=== PATIENT | female | born 1950 | race Caucasian/White ===

== ENCOUNTER 2019-01-14 16:55 | Observation (INO) ==
[2019-01-14] MEDS ORDERED: methylPREDNISolone SOD SUC 125 MG/2 ML VIAL IV STA (18:36)
[2019-01-14] MEDS ORDERED: ALBUTEROL/IPRATROPIUM 3 ML NEB RESP TX STA (18:36)
[2019-01-14] MEDS ORDERED: ALBUTEROL 2.5 MG/3 ML NEB RESP TX STA (18:37)
[2019-01-14 18:53] LABS: Basophils # 0.1 10*3/uL (0.0-0.2); Basophils % 0.4 % (0.0-0.8); Eosinophils # 0.1 10*3/uL (0.0-0.87); Hemoglobin 14.5 GM/DL (12.0-16.0); Immature Granulocytes % 0.3 %; Immature Granulocytes Absolute 0.04 #; Lymphocytes # 2.9 10*3/uL (1.4-4.0); Lymphocytes % 20.9 % (21.3-54.2); Mean Corpuscular HGB Conc 33.7 GM/DL (32-36); Mean Corpuscular Volume 83.8 FL (87-102); Mean Platelet Volume 9.8 FL (9.6-12.0); Monocytes % 5.8 % (1.7-12.7); Neutrophils % 71.6 % (38.7-73.9); Platelet Count 299 T/CUMM (130-400); Red Blood Count 5.13 MC/CUMM (3.8-5.5); White Blood Count 13.6 T/CUMM (4-12)
[2019-01-14 19:06] LABS: Calcium 9.8 MG/DL (8.5-10.1); Osmolality,Calculated 275.7 MOS/KG (273-304)
[2019-01-14] MEDS ORDERED: cefTRIAXone 1,000 MG in SODIUM CHLORIDE 0.9% 100 ML IV STA (19:10)
[2019-01-14] MEDS ORDERED: AZITHROMYCIN INJ 500 MG in SODIUM CHLORIDE 0.9% 250 ML IV STA (19:10)
[2019-01-14 19:17] LABS: ABG HCO3 29.8 MMOL/L (20-26); ABG Oxygen Saturation 94.1 % (95-100); ABG PCO2 34.8 MM HG (35-48); ABG PH 7.524 (7.35-7.45); ABG PO2 65.2 MM HG (80-95); ABG TCO2 24.3 MMOL/L (23-27); Allen Test Positive; Pt O2 Delivery Device Room Air
[2019-01-14] MEDS ORDERED: ALBUTEROL 2.5 MG/3 ML NEB RESP TX PRN (19:40)
[2019-01-14] MEDS ORDERED: hydrALAZINE 20 MG/1 ML VIAL IV PRN (19:42)
[2019-01-14] MEDS ORDERED: DOCUSATE SODIUM 100 MG CAPSULE PO PRN (19:56)
[2019-01-14] MEDS ORDERED: ZALEPLON 5 MG CAPSULE PO PRN (19:56)
[2019-01-14] MEDS ORDERED: ACETAMINOPHEN 325 MG TABLET PO PRN (19:56)
[2019-01-14] MEDS ORDERED: guaiFENesin/DM ER 600-30 MG TABLET PO PRN (19:56)
[2019-01-14] MEDS ORDERED: ONDANSETRON 4 MG/2 ML VIAL IV PRN (19:56)
[2019-01-14] MEDS ORDERED: diphenhydrAMINE CAP 25 MG CAPSULE PO PRN (19:56)
[2019-01-14] MEDS: POTASSIUM CHLORIDE 20 MEQ TABLET PO SCH (20:52)
[2019-01-14] MEDS: SODIUM CHLORIDE 0.9% 1,000 ML IV SCH (20:53)
[2019-01-14] MEDS: ENOXAPARIN 40 MG/0.4 ML SYRINGE SUBCUT SCH (20:53)
[2019-01-14] MEDS: BUDESONIDE 0.5 MG/2 ML NEB RESP TX SCH (23:10)
[2019-01-14] MEDS: ALBUTEROL/IPRATROPIUM 3 ML NEB RESP TX SCH (23:10)
[2019-01-15] MEDS: ALBUTEROL/IPRATROPIUM 3 ML NEB RESP TX SCH ×5 (03:18→20:04)
[2019-01-15] MEDS: methylPREDNISolone SOD SUC 40 MG/1 ML VIAL IV SCH ×3 (03:32→18:29)
[2019-01-15 06:10] LABS: Immature Granulocytes % 0.4 %; Immature Granulocytes Absolute 0.04 #; Lymphocytes # 0.6 10*3/uL (1.4-4.0); Lymphocytes % 6.3 % (21.3-54.2); Mean Corpuscular HGB Conc 34.2 GM/DL (32-36); Mean Corpuscular Volume 84.6 FL (87-102); Mean Platelet Volume 10.3 FL (9.6-12.0); Monocytes % 0.4 % (1.7-12.7); Neutrophils % 92.9 % (38.7-73.9); Platelet Count 250 T/CUMM (130-400); Red Blood Count 4.49 MC/CUMM (3.8-5.5); White Blood Count 8.9 T/CUMM (4-12)
[2019-01-15 06:26] LABS: Albumin 2.8 G/DL (3.4-5.0); Bilirubin,Total 0.8 MG/DL (0.2-1.0); Calcium 9.4 MG/DL (8.5-10.1); Osmolality,Calculated 287.1 MOS/KG (273-304); Total Protein 6.5 G/DL (6.4-8.3)
[2019-01-15 06:42] LABS: Hypochromasia 1+; Lymphocytes 1 % (20-55); Microcytosis 1+; Platelet Estimate Normal; Segmented Neutrophils 99 % (50-85); Total Cells Counted 100
[2019-01-15] MEDS: BUDESONIDE 0.5 MG/2 ML NEB RESP TX SCH ×2 (07:02→20:04)
[2019-01-15] MEDS: POTASSIUM CHLORIDE 20 MEQ TABLET PO SCH ×2 (09:00→21:37)
[2019-01-15] MEDS: PANTOPRAZOLE 40 MG TABLET PO SCH (09:00)
[2019-01-15] MEDS: POTASSIUM CHLORIDE RIDER 10 MEQ in PREMIX 1 EACH IV SCH ×8 (10:09→22:58)
[2019-01-15] MEDS ORDERED: MAGNESIUM SULF RIDER 4 GM in PREMIX 1 EACH IV PRN (13:50)
[2019-01-15] MEDS ORDERED: MAGNESIUM SULF RIDER 2 GM in PREMIX 1 EACH IV PRN (13:50)
[2019-01-15] MEDS: SODIUM CHLORIDE 0.9% 1,000 ML IV SCH (14:05)
[2019-01-15] MEDS ORDERED: hydrOXYzine HCL 25 MG TABLET PO ONE (18:08)
[2019-01-15] MEDS: cefTRIAXone 1,000 MG in SYRINGE 1 EACH IV SCH (18:31)
[2019-01-15] MEDS: GABAPENTIN 100 MG CAPSULE PO SCH (21:37)
[2019-01-15] MEDS: ROSUVASTATIN 20 MG TABLET PO SCH (21:37)
[2019-01-15] MEDS: ENOXAPARIN 40 MG/0.4 ML SYRINGE SUBCUT SCH (21:38)
[2019-01-15] MEDS: AZITHROMYCIN INJ 500 MG in SODIUM CHLORIDE 0.9% 250 ML IV SCH (21:48)
[2019-01-16] MEDS: methylPREDNISolone SOD SUC 40 MG/1 ML VIAL IV SCH ×2 (03:55→21:27)
[2019-01-16] MEDS: ALBUTEROL/IPRATROPIUM 3 ML NEB RESP TX SCH ×6 (04:10→19:23)
[2019-01-16 05:48] LABS: Risk Ratio 2.18; VLDL CHOLESTEROL 19.6 MG/DL
[2019-01-16 05:55] LABS: Free T4 (Free Thyroxine) 1.47 NG/DL (0.76-1.46); Thyroid Stimulating Hormone 0.086 uIU/ml (0.358-3.74)
[2019-01-16] MEDS ORDERED: LEVOTHYROXINE 150 MCG TABLET PO SCH (07:00)
[2019-01-16] MEDS: BUDESONIDE 0.5 MG/2 ML NEB RESP TX SCH ×2 (07:47→19:23)
[2019-01-16 08:18] LABS: Calcium 9.1 MG/DL (8.5-10.1); Osmolality,Calculated 286.3 MOS/KG (273-304)
[2019-01-16] MEDS: PANTOPRAZOLE 40 MG TABLET PO SCH (09:51)
[2019-01-16] MEDS: POTASSIUM CHLORIDE 20 MEQ TABLET PO SCH ×2 (09:51→21:18)
[2019-01-16] MEDS: CITALOPRAM 40 MG TABLET PO SCH (09:51)
[2019-01-16] MEDS: GABAPENTIN 100 MG CAPSULE PO SCH ×2 (09:51→21:18)
[2019-01-16] MEDS: CLOPIDOGREL 75 MG TABLET PO SCH (09:51)
[2019-01-16] MEDS: guaiFENesin/DM ER 600-30 MG TABLET PO SCH ×2 (09:52→21:18)
[2019-01-16] MEDS: LINACLOTIDE 145 MCG CAPSULE PO SCH (09:52)
[2019-01-16] MEDS: Fluticasone Furoate-Vilanterol [Breo Ellipta] 1 inh INH SCH (09:54)
[2019-01-16] MEDS: ROSUVASTATIN 20 MG TABLET PO SCH (21:18)
[2019-01-16] MEDS: ENOXAPARIN 40 MG/0.4 ML SYRINGE SUBCUT SCH (21:18)
[2019-01-16] MEDS: AZITHROMYCIN INJ 500 MG in SODIUM CHLORIDE 0.9% 250 ML IV SCH (21:21)
[2019-01-16] MEDS: cefTRIAXone 1,000 MG in SYRINGE 1 EACH IV SCH (21:22)
[2019-01-17] MEDS: ALBUTEROL/IPRATROPIUM 3 ML NEB RESP TX SCH ×4 (00:24→11:04)
[2019-01-17] MEDS ORDERED: LEVOTHYROXINE 125 MCG TABLET PO SCH (06:30)
[2019-01-17] MEDS: SODIUM CHLORIDE 0.9% 1,000 ML IV SCH (07:16)
[2019-01-17] MEDS: BUDESONIDE 0.5 MG/2 ML NEB RESP TX SCH (07:33)
[2019-01-17] MEDS: CLOPIDOGREL 75 MG TABLET PO SCH (09:40)
[2019-01-17] MEDS: GABAPENTIN 100 MG CAPSULE PO SCH (09:40)
[2019-01-17] MEDS: CITALOPRAM 40 MG TABLET PO SCH (09:40)
[2019-01-17] MEDS: guaiFENesin/DM ER 600-30 MG TABLET PO SCH (09:40)
[2019-01-17] MEDS: PANTOPRAZOLE 40 MG TABLET PO SCH (09:40)
[2019-01-17] MEDS: POTASSIUM CHLORIDE 20 MEQ TABLET PO SCH (09:41)
[2019-01-17] MEDS: LINACLOTIDE 145 MCG CAPSULE PO SCH (09:41)
[2019-01-17] MEDS: Fluticasone Furoate-Vilanterol [Breo Ellipta] 1 inh INH SCH (09:41)
[2019-01-17] MEDS: methylPREDNISolone SOD SUC 40 MG/1 ML VIAL IV SCH (09:52)
[2019-01-17 12:14] VITALS: BP 128/47
== END 2019-01-17 14:05 | disposition home or self-care (01) ==
LOC: N.ED 16:55 → N.EDINP 16:55 → SUATTDRO 19:56 → N.2E 20:14
PROVIDERS: ADMIT Internal Medicine; ATTEND Internal Medicine